=== PATIENT | male | born 1945 | race Hispanic/Latino ===

== ENCOUNTER 2022-10-14 16:21 | Emergency (ER) | payer MEDICARE, OTHER ==
[~2022-10-14] VITALS: Ht 157.5 cm; Wt 85.7 kg
[2022-10-14 17:09] LABS: BASOPHILS % (AUTO) 0.8 % (0.0-5.0); EOSINOPHILS % (AUTO) 6.7 % (0.0-8.0); HEMATOCRIT 41.9 % (42-54); LYMPHOCYTES % (AUTO) 15.5 % (21.0-51.0); MEAN CORPUSCULAR HEMOGLOBIN 30.8 pg (27.0-33.0); MEAN CORPUSCULAR HGB CONC 33.2 g/dL (32.0-36.0); MEAN CORPUSCULAR VOLUME 92.7 fL (79-99); MONOCYTES % (AUTO) 10.1 % (3.0-13.0); NEUTROPHILS % (AUTO) 66.6 % (40.0-77.0); PLATELET COUNT (AUTO) 237 K/uL (130-400); RED BLOOD CELL COUNT(AUTO) 4.52 MIL/uL (4.50-6.20); RED CELL DISTRIBUTION WIDTH 12.9 % (11.0-15.5); WHITE BLOOD COUNT (AUTO) 7.9 K/uL (4.8-10.8)
[2022-10-14 17:20] LABS: POTASSIUM 3.8 mmol/L (3.5-5.1)
[2022-10-14 17:24] LABS: ALBUMIN 3.7 g/dL (3.5-5.0); TOTAL PROTEIN, SERUM 7.1 g/dL (6.0-8.3)
[2022-10-14] MEDS ORDERED: 0.9%NACL 1000ML 1,000 ML IV ONE (17:30)
[2022-10-14] MEDS ORDERED: ONDANSETRON 4MG INJ IVP ONE (17:30)
[2022-10-14] MEDS ORDERED: MORPHINE 4 MG SYG IM ONE (17:30)
[2022-10-14] MEDS ORDERED: IOHEXOL 350 MG/ML 100ML INFUS..BTL IV ONE (17:39)
[2022-10-14 19:09] LABS: APPEARANCE,URINE CLEAR (CLEAR); BILIRUBIN,URINE NEGATIVE (NEGATIVE); COLOR,URINE LIGHT-YELLOW (YELLOW); GLUCOSE, URINE (UA) NEGATIVE (NEGATIVE); KETONES,URINE NEGATIVE (NEGATIVE); LEUKOCYTE ESTERASE ,URINE NEGATIVE Leu/uL (NEGATIVE); NITRATE,URINE NEGATIVE (NEGATIVE); OCCULT BLOOD,URINE NEGATIVE (NEGATIVE); PH,URINE 5.5 (5.0-8.0); PROTEIN,URINE 10 mg/dL (NEGATIVE); UROBILINOGEN,URINE 0.2 mg/dL (0.2-1.0)
[2022-10-14 19:23] LABS: MUCUS,URINE RARE LPF (None Seen); RBC,URINE 0-1 /HPF (0-1); SQUAMOUS EPITHELIAL CELL,UR RARE /HPF (0-2); WBC,URINE 0-1 /HPF (0-1)
[2022-10-14] MEDS ORDERED: MORPHINE 4 MG SYG IVP ONE (20:00)
[2022-10-14 20:02] VITALS: BP 160/80
[2022-10-14 20:12] LABS: CRP QUANTITATIVE 2.1 mg/L (0.00-9.0)
== END 2022-10-14 20:13 | disposition home or self-care (01) ==
LOC: EDH 16:21
DX: K65.4 Sclerosing mesenteritis (principal); E86.0 Dehydration
CPT/HCPCS: 99285; 84484; 80053; 83690; 85025; 83605; 86140; 81001; 36415; 71045; 74177; 96372; 96374; 96361; 96375; 93005; J7030; J2405; J2270 ×2; Q9967

== ENCOUNTER 2024-11-17 11:30 | Emergency (ER) | payer MEDICARE ==
[~2024-11-17] VITALS: Ht 160 cm; Wt 86.6 kg
--- NOTE | 2024-11-17 11:38 | ERN ---
ED Note History of Present Illness Stated Complaint: LT HIP PAIN Chief Complaint: Hip Pain/Injury Time Seen by MD: 11:33 Dictation: PATIENT IS 79-YEAR-OLD MALE COMING IN TODAY FROM A LOCAL PRIMARY CARE DOCTOR'S OFFICE WITH COMPLAINTS OF NON TRAUMA LEFT ANTEROLATERAL HIP PAIN FOR THREE DAYS. HE STATES THE PAIN IS CONSTANT, DOES NOT INCREASE WITH RANGE OF MOTION OR FLEXION OF HIP. DISTAL NEUROVASCULAR CMS INTACT. NO FEVER NO CHILLS. Allergies: Coded Allergies: No Known Allergies (Unverified Allergy, Unknown, 10/14/22) Past Medical History Past Medical History: No Pertinent History Surgical History: None RN Note Reviewed/Agreed w/PFSH: Yes Review of System Dictation CONSTITUTIONAL: NEGATIVE EXCEPT FOR HPI HEAD/FACE: NEGATIVE EXCEPT FOR HPI EENT: NEGATIVE EXCEPT FOR HPI RESPIRATORY: NEGATIVE EXCEPT FOR HPI GASTROINTESTINAL/ABDOMINAL: NEGATIVE EXCEPT FOR HPI GENITOURINARY: NEGATIVE EXCEPT FOR HPI MUSCULOSKELETAL: NEGATIVE EXCEPT FOR HPI LEFT HIP PAIN INTEGUMENTARY: NEGATIVE EXCEPT FOR HPI NEUROLOGICAL/PSYCH: NEGATIVE EXCEPT FOR HPI HEMATOLOGIC/LYMPHATIC: NEGATIVE EXCEPT FOR HPI ALL SYSTEMS NEGATIVE, EXCEPT NOTED ABOVE. 13 POINT REVIEW OF SYSTEMS ASSESSED AND ALL NEGATIVE EXCEPT FOR ABOVE. Initial Vital Sign VS Vital Signs Date Time Temp Pulse Resp B/P (MAP) Pulse Ox O2 Delivery O2 Flow Rate FiO2 11/17/24 11:32 98.1 75 20 156/82 99 Room Air 11/17/24 11:42 0 21 Physical Exam Dictation VITAL SIGNS REVIEWED GENERAL APPEARANCE: ALERT, ORIENTED X 3, MILD ACUTE DISTRESS, WELL DEVELOPED, NOURISHED. HEAD AND FACE: NON-TRAUMATIC. EYES: PERRL, PINK CONJUNCTIVAS, EYELID NO TRAUMA, ANTERIOR CHAMBER WITH ARCUS SENILIS. EARS: PINNAS INTACT AND NO SIGNS OF TRAUMA OR ERYTHEMA EAR CANALS CLEAR AND NO DISCHARGE TM NO ERYTHEMA NOSE: NO DISCHARGE, NO BLEEDING. OROPHARYNX: MOUTH NORMAL, TONGUE PINK, PHARYNX CLEAR,NO ERYTHEMA, TONSILS NO EXUDATES, NO ABSCESSES NOTED, MUCOUS MEMBRANE MOIST NECK: SUPPLE, NON-TENDER, NO THYROMEGALY, NO MASSES, NO JVD, NO BRUITS BREAST:DEFERRED CHEST:NO TENDERNESS, NO CREPITUS, NO PARADOXICAL MOVEMENT, NO RETRACTIONS LUNGS:CLEAR, WELL-VENTILATED, SYMMETRIC, NO RALES, NO WHEEZING, NO RHONCHI, NO STRIDOR, GOOD BREATH SOUNDS BILATERALLY HEART: REGULAR RATE, REGULAR RHYTHM, NO MURMUR, NO GALLOPS VASCULAR: NO PERIPHERAL EDEMA, ABDOMEN: SOFT, POSITIVE BOWEL SOUNDS, NONDISTENDED, NO GUARDING, NONTENDER, NO REBOUND, NO MASSES NO HEPATOMEGALY, NO SPLENOMEGALY, NO CATALAN'S SIGN, NO HERNIAS. RECTAL: DEFERRED GENITAL: DEFERRED NEUROLOGICAL: NORMAL SPEECH, MOTOR FUNCTION INTACT, SENSORY FUNCTION INTACT MUSCULOSKELETAL: NECK NONTENDER, FULL RANGE OF MOTION, BACK NONTENDER, FULL RANGE OF MOTION, EXTREMITIES: TENDERNESS TO LEFT ANTERIOR LATERAL HIP AREA. SKIN INTACT NO LESIONS. NO SHORTENING OR ROTATION OF LEFT LEG, DISTAL NEUROVASCULAR CMS INTACT. SKIN: COLOR PINK, DRY, NO TURGOR, NO RASH, NO LACERATIONS, NO ABRASIONS, NO CONTUSIONS. LYMPHATIC: DEFERRED Results (Laboratory/Radiology) Laboratory/Radiology 1205, LEFT HIP X-RAY NEGATIVE DEGENERATIVE CHANGES ONLY Labs Reviewed?: Yes ED Course ED Course Orders Procedure Category Date Status Time Hip Unilat 2-3vw Left RAD 11/17/24 Taken 11:36 Dexamethasone 4mg/Ml PHA 11/17/24 Complete 1ml Vial (Dexametha 12:00 Ibuprofen 600 Mg PHA 11/17/24 Complete Tablet (Motrin) 12:00 Current Medications Medications (Trade) Dose Ordered Sig/Georgiana Route PRN Reason Start Time Stop Time Status Last Admin Dose Admin Dexamethasone Sodium Phosphate (dexaMETHasone 4MG/ML 1ML VIAL) 8 mg ONCE ONCE IM 11/17/24 12:00 11/17/24 12:01 DC Ibuprofen (moTRIN) 600 mg ONCE ONCE PO 11/17/24 12:00 11/17/24 12:01 DC Vital Signs Date Time Temp Pulse Resp B/P (MAP) Pulse Ox O2 Delivery O2 Flow Rate FiO2 11/17/24 11:42 98.4 75 20 156/82 99 Room Air* 0 21 11/17/24 11:32 98.1 75 20 156/82 99 Room Air 1230/LEFT HIP X-RAY NEGATIVE FOR FRACTURE, DEGENERATIVE CHANGES ONLY PATIENT TREATED FOR PAIN WE WILL BE DISCHARGED HOME TO FOLLOW UP WITH DR. SANDRA [facility] NEEDED Medical Decision Making MDM MEDICAL DECISION-MAKING BASED ON X-RAY OF LEFT HIP AND PAIN MANAGEMENT. LEFT HIP X-RAY NEGATIVE EXCEPT FOR DJD PATIENT STATES PAIN IMPROVING AFTER TREATMENT DISCHARGED HOME TO FOLLOW UP WITH DR. ALICIA SANDRA NEEDED. DX & DISP Disposition: Discharge Departure Impression: Primary Impression: Acute pain of left hip Additional Impression: Degenerative joint disease of left hip Condition: Stable Scripts Acetaminophen with Codeine (Acetaminophen-Cod #3 Tablet) 300 Mg-30 Mg Tablet 1 TAB PO Q4H PRN for MODERATE TO SEVERE PAIN, #12 TAB 0 Refills Prov: NELI MIRZA NP 11/17/24 Additional Instructions: FOLLOW-UP WITH PRIMARY CARE PROVIDER IN 1 TO 2 DAYS. TAKE MEDICATIONS DIRECTED HERE IN THE EMERGENCY ROOM. OKAY TO CONTINUE HOME MEDICATIONS UNLESS OTHERWISE DISCUSSED DURING YOUR VISIT IN THE EMERGENCY ROOM TODAY. RETURN TO YOUR NEAREST EMERGENCY ROOM IF SYMPTOMS WORSEN OR IF THERE IS NO IMPROVEMENT. CALL 911 IF YOU NEED IMMEDIATE ASSISTANCE. TAKE TYLENOL OR MOTRIN [id number] NEEDED AND IF NO CONTRAINDICATIONS ARE PRESENT. INCREASE ORAL HYDRATION. A WOUND CULTURE OR URINE CULTURE WAS ORDERED HERE IN THE EMERGENCY ROOM DEPARTMENT PLEASE FOLLOW-UP WITH PRIMARY CARE PROVIDER AND ADVISE THEM TO GET REPEAT PORTS FROM OUR FACILITY. IF YOU HAD ANY GRECIA WRAP/SPLINTS THAT WERE APPLIED HERE, PLEASE DO NOT REMOVE THEM UNTIL YOU SEE YOUR PRIMARY CARE OR SPECIALTY. TAKE TYLENOL WITH CODEINE NEEDED FOR SEVERE PAIN. SUGGEST TYLENOL ARTHRITIS 650 MG/[id number] ONE EVERY 8 HOURS FOR THE NEXT TWO DAYS. FOLLOW UP WITH DR. SANDRA NEEDED, CALL FOR AN APPOINTMENT. Referrals: SELF,REFERRAL (PCP) ALICIA SANDRA DO Time of Disposition: 12:29 I have reviewed the case, and I agree with, Diagnosis and Plan NELI MIRZA NP Nov 17, 2024 11:38
[2024-11-17] MEDS: dexaMETHasone SOD PHOSPHATE 4 MG/ML 1ML VIAL IM ONE (12:28)
[2024-11-17] MEDS: ibuPROFEN 600 MG TABLET PO ONE (12:29)
[2024-11-17] MEDS ORDERED: ACET-2079 PO (12:31)
--- NOTE | 2024-11-17 12:43 | HMCIMG ---
HIP UNILAT 2-3VW LEFT HISTORY: Pain COMPARISON: None TECHNIQUE: 2 images of the left hip were obtained. FINDINGS: There is no acute displaced fracture or dislocation. Degenerative changes are seen. IMPRESSION: 1. Findings as described above.
[2024-11-17 13:15] VITALS: BP 151/82; PULSE 74; RESP 20; TEMP 98.4; O2SAT 99
== END 2024-11-17 13:17 | disposition home or self-care (01) ==
LOC: EDH 11:30
DX: M25.552 Pain in left hip (principal); M16.12 Unilateral primary osteoarthritis, left hip
CPT/HCPCS: 99283; 73502; 96372; J1100